=== PATIENT | female | born 1995 | race Caucasian/White ===

== ENCOUNTER → 2018-04-03 | Outpatient (CLI) | payer SELFPAY ==
[~2018-04-03] MED LIST: ACE325 PO; BUPXL150 PO; CEP250 PO; METF-450 PO; NO ROUTINE MEDS; OXYC-763 PO; PREN-148; RAN150 PO; TRAZ50 PO
[2018-04-03 09:26] LABS: PLATELET COUNT, AUTOMATED 320 K/uL (150-450)
== END ==
LOC: LAB 08:02
PROVIDERS: ATTEND Student in an Organized Health Care Education/Training Program
DX: Z34.81 Encounter for supervision of other normal pregnancy, first trimester (principal); R82.79 Other abnormal findings on microbiological examination of urine
CPT/HCPCS: 36415; 81001; 85025; 86592; 86703; 86762; 86850; 86900; 86901; 87088; 87340

== ENCOUNTER → 2018-04-10 | Outpatient (CLI) | payer SELFPAY | LOC: LAB 08:14 | PROVIDERS: ATTEND Student in an Organized Health Care Education/Training Program | DX: Z34.01 Encounter for supervision of normal first pregnancy, first trimester (principal) | CPT/HCPCS: 87491; 87591 ==

== ENCOUNTER → 2018-07-03 | Outpatient (CLI) | payer SELFPAY ==
--- NOTE | 2018-07-03 16:33 | RADIOLOGY IMAGING REPORT ---
FACILITY: [facility] [place] PATIENT NAME: Lela Land : 1995 MR: [id number] V: [id number] EXAM DATE: ORDERING PHYSICIAN: EMERSON HEREDIA TECHNOLOGIST: [place] [facility] [place] : 1995 Visit/Account:[id number] Date of Sevice: 07/03/2018 EXAMINATION: Ultrasound transabdominal OB > 14 weeks with anatomic evaluation HISTORY: Anatomic survey COMPARISON: None. TECHNIQUE: Transabdominal imaging was performed for assessment of the fetus and maternal pelvic structures. T ransvaginal imaging was not performed. FINDINGS: Placenta: Anterior without previa. Uterus: Gravid, otherwise normal Cervix: Long and closed. Maternal Ovaries: Not visualized. Maternal and other adnexa findings: Not visualized Intrauterine gestations: One. presentation: Breech heart rate: Normal and regular at 160 bpm Amniotic fluid index: 13.68 cm Largest amniotic fluid pocket: 4.27 cm Gestational Parameters: BPD: 4.65 cm 20 weeks/ one days, 71% HC: 17.17 cm 19 weeks/ six days, 51% AC: 14.66 cm 20 weeks/ zero days, 58% FL: 2.98 cm 19 weeks/ two days, 29% Average ultrasound age (AUA): 19 weeks/six days, ARA 11/21/2018 Estimated gestational age by ARA: 19 weeks/four days, ARA 11/23/2018 Estimated weight (EFW): 304 grams +/- 45 grams EFW for ARA: 49 percentile Anatomic Survey: Intracranial structures, 4-chamber heart, stomach, kidneys, urinary bladder, spine, 3-vessel cord and cord insertion are unremarkable. Two upper and two lower extremities visualized. Cardiac ventricula r outflow tracts, palate and lips are unremarkable in appearance.. The nasal bone region of th e face was not well seen IMPRESSION: Single viable fetus in breech presentation with an estimated gestational age by measurem ents of 19 weeks and six days. The estimated gestational age by LMP is 19 weeks and four days. The estimated weight is 304 g equivalent to the 49th percentile The anatomic survey was within normal limits other than limited evaluation of the nasal bones b y technologist notation Report Dictated By: Renetta Cunningham MD at 07/03/2018 4:24 PM Report E-Signed By: Renetta Cunningham MD at 07/03/2018 4:28 PM QUINTONN:REYES
== END ==
LOC: US 08:04
PROVIDERS: ATTEND Student in an Organized Health Care Education/Training Program
DX: Z02.9 Encounter for administrative examinations, unspecified (principal)

== ENCOUNTER → 2018-08-03 | Outpatient (CLI) | payer SELFPAY | LOC: RAD 10:27 | PROVIDERS: ATTEND Student in an Organized Health Care Education/Training Program | DX: Z02.9 Encounter for administrative examinations, unspecified (principal) ==

== ENCOUNTER → 2018-08-31 | Outpatient (CLI) | payer SELFPAY ==
[~2018-08-31] MED LIST changes: +DIPH0.5S2 IM
[2018-08-31 11:40] LABS: PLATELET COUNT, AUTOMATED 247 K/uL (150-450)
== END ==
LOC: LAB 09:58
PROVIDERS: ATTEND Student in an Organized Health Care Education/Training Program
DX: Z34.92 Encounter for supervision of normal pregnancy, unspecified, second trimester (principal)
CPT/HCPCS: 36415; 82950; 85025

== ENCOUNTER → 2018-10-24 | Outpatient (CLI) | payer SELFPAY | LOC: LAB 08:44 | PROVIDERS: ATTEND Obstetrics & Gynecology | DX: Z36.85 Encounter for antenatal screening for Streptococcus B (principal) | CPT/HCPCS: 87081 ==